=== PATIENT | male | born 1965 | race Two or more races ===

== ENCOUNTER 2025-04-13 15:07 | Inpatient (IN) | payer BC, OTHER ==
[~2025-04-13] VITALS: Ht 165.1 cm; Wt 85.3 kg
[2025-04-13 15:47] LABS: Urine Bacteria None Seen /hpf (None Seen)
[2025-04-13 16:11] LABS: Urine Blood 3+ /uL (Negative); Urine Clarity Turbid (Clear); Urine Color Light-Brown (Yellow); Urine Protein, UAD Negative (Negative); Urine Specific Gravity 1.018 (1.001-1.035); Urine Squamous Epithelial Cell None Seen /hpf (<5); Urine Urobilinogen Normal (Negative); Urine WBC 39 /HPF (0-3)
--- NOTE | 2025-04-13 16:24 | DVH ---
Exam: CT CT AB PEL WO CON-NO ORAL OR IV History: RLQ PAIN, HEMATURIA. Comparison Study: None TECHNIQUE: Multidetector CT of the abdomen was performed from lung bases to pubic symphysis. Imaging was performed without IV contrast. Axial, coronal and sagittal multiplanar reformats were obtained fr om the axial data set by the technologist. Radiation Dose Information: CT Dose: CTDI volume is 15.23 mGy. Dose-length product is 934.95 mGy*cm FINDINGS: Evaluation of solid organs is limited due to lack of intravenous contrast use. Findings: Lung Bases: No acute or significant lung base finding. Normal heart size. No pleural or pericardial effusion. Liver: The liver is normal in size. No focal lesions. Gallbladder and Biliary Tree: Possible sludge in the gallbladder Spleen: Unremarkable Pancreas: The pancreas is grossly normal in appearance. Adrenal Glands: Unremarkable Kidneys: 2 mm calculus right kidney. 6-7 mm calculus lower pole right kidney. Punctate calculus lowe r pole. Hydronephrosis right kidney .Dilatation distal right ureter. Bladder: Right ureterovesical junction. Bowel: The stomach is grossly normal in appearance. Small bowel and colon are normal in caliber and d istribution. The appendix is not visualized; however, no secondary findings of acute appendicitis id entified. Ascites: Absent Lymphadenopathy: No mesenteric, retroperitoneal or periportal lymphadenopathy. Abdominal Wall and Mesentery: Unremarkable. Vasculature: The visualized abdominal aorta is normal in size and caliber. Evaluation of abdominal a nd pelvic vessels is limited due to lack of intravenous contrast. Pelvic Organs: Unremarkable Musculoskeletal: No aggressive focal bony lesions, acute fractures or dislocation. Soft tissues: Unremarkable IMPRESSION: 1. Hydronephrosis right kidney. 3 intrarenal calculi on the right with a 5-6 mm calculus in the right ureterovesical junction and dilatation of the right ureter throughout. 2. No findings of bowel obstruction 3. No cholelithiasis Radiation optimization: All CT scans at this facility use at least one of these dose optimization ayesha hniques: automated exposure control mA and/or kV adjustment per patient size (includes targeted exam s where dose is matched to clinical indication) or iterative reconstruction.
[2025-04-13 16:29] LABS: Basophils # (auto) 0 10 ^3/uL (0-0.2); Basophils % (auto) 0.3 % (0.0-2.0); Eosinophils # (auto) 0.1 10 ^3/uL (0-0.8); Eosinophils % (auto) 0.8 % (0.0-7.0); Hematocrit 48.6 % (41.0-53.0); Hemoglobin 16.7 g/dL (13.5-17.5); Lymphocytes # (auto) 2.7 10 ^3/uL (0.4-5.4); Lymphocytes % (auto) 32.2 % (10.0-50.0); Mean Corpuscular Hemoglobin 31.2 pg (28.0-32.0); Mean Corpuscular Hgb Conc. 34.3 g/dL (32.0-36.0); Mean Corpuscular Volume 90.9 fL (80.0-100.0); Monocytes # (auto) 0.8 10 ^3/uL (0-1.3); Neutrophils # (auto) 4.9 10 ^3/uL (1.6-8.6); Neutrophils % (auto) 57.7 % (37.0-80.0); Nucleated Red Blood Cells % 0.1 %; Platelet Count (auto) 212 10^3/uL (140-450); Red Blood Cells 5.35 10^6/uL (4.5-5.90); Red Cell Distribution Width 14.5 % (11.8-14.3); White Blood Cell 8.5 10^3/uL (4.4-10.8)
[2025-04-13 16:36] LABS: Alanine Aminotransferase 35 U/L (7-40); Albumin 4.6 g/dL (3.2-4.8); Alkaline Phosphatase 64 U/L (46-116); Anion Gap 9 (5-15); Aspartate Aminotransferase 24 U/L (13-40); BUN/Creatinine Ratio 16.5 (10.0-20.0); Blood Urea Nitrogen 21 mg/dL (9-23); Calcium 9.9 mg/dL (8.7-10.4); Carbon Dioxide 30 mmol/L (20-31); Chloride 105 mmol/L (98-107); Glucose 104 mg/dL (74-106); Potassium 4.1 mmol/L (3.5-5.1); Sodium 144 mmol/L (136-145); Total Protein 7.2 g/dL (5.7-8.2)
[2025-04-13 16:37] LABS: Bilirubin, Total 0.5 mg/dL (0.2-1.0)
[2025-04-13 17:00] VITALS: PULSE 61; RESP 17; O2SAT 98
[2025-04-13 17:10] LABS: Lipase 42 U/L (12-53)
[2025-04-13] MEDS: SODIUM CHLORIDE 0.9% 1,000 ML IV ONE (17:12)
[2025-04-13] MEDS: fentaNYL CITRATE 100 MCG/2 ML VL IV ONE (17:12)
--- NOTE | 2025-04-13 17:13 | ED.PDOC ---
General HPI Comments 60 y M who presents to the ED for chief complaint of hematuria - pt states he noticed blood in his urine since earlier this AM - pt states his urine was dark red in color - pt has associated RLQ abdominal pain radiating to the R testes - pt rates his pain 4/10, with no associated exacerbating or relieving factors - pt otherwise denies any other symptoms Past Medical history: denies Past Surgical history: L wrist Medications: denies Allergies: iodine Social History: denies ETOH, denies tobacco use, denies drug use HPI: Poor Historian. REVIEW OF SYSTEMS: CONSTITUTIONAL: Denies acute: fever, diaphoresis, chills, HEAD: Denies acute: headache, photophobia Eyes: Denies acute: Double vision, vision loss, eye pain, eye discharge. EARS: Denies acute: tinnitus, hearing loss, ear discharge, ear pain, THROAT: Denies acute: sore throat, swelling, difficulty swallowing , pain with swallowing, change in voice. NECK: Denies acute: neck pain, neck swelling, stiff neck. HEART: Denies acute : chest pain, palpitations, LUNGS: Denies acute: SOB, wheezing, cough, hemoptysis ABDOMEN: Denies acute: Nausea, Vomiting, diarrhea, melena , hematemesis, hematochezia SKIN: Denies acute: rash, redness, lesions, itchiness. EXTREMITIES: Denies acute: calf pain, numbness, tingling, weakness, denies pain in extremity. Denies acute: Low back pain. Neuro: Denies acute: focal neurological deficit, motor or sensory focal neurological deficit, tremors, seizure like activity, confusion, dizziness, change in mental status, loss of bowel or bladder function, cauda equina like symptoms. : Denies acute: dysuria, flank pain, increase in urinary frequency. PSYCH: Denies acute: hallucination, suicidal ideation, homicidal ideation. PHYSICAL EXAM: General: ---[id number]-----acute distress, awake and alert. Head: normocephalic, atraumatic. Neck: supple, trachea is midline, no swelling. Throat: Normal phonation. Eyes:, no erythema, no purulent discharge, no proptosis, no icterus. Heart: regular rate, regular rhythm, no significant murmur appreciated. Lungs: no apparent respiratory distress, Able to speak in full sentences. No wheezing, no rhonchi, no crackles. No stridors Clear to auscultation bilaterally. Abdomen: Right-sided tender to palpation, non distended, soft, no guarding, no rebound, + bowel sounds. Neuro: Awake, Alert, oriented to name, self, situation, follows commands GCS=15. Speech is normal. Skin: no petechia, no purpura, no cyanosis, non-pale, not jaundice. Lower extremities: --no - Pitting edema no deformity, no focal swelling, no calf TTP. Makes eye contact. moves all four extremities. Face: no apparent facial droop. No CVA tenderness to percussion bilaterally. Ambulating in the ED independently. ED COURSE: Chief Complaint: Urinary Time Seen by MD: 17:12 Primary Care Provider: UNKNOWN Reviewed notes: Medications, Allergies Allergies: Coded Allergies: Iodine (Verified Allergy, Unknown, 04/13/25) Home Meds No Active Prescriptions or Reported Meds Information Source: Patient Mode of Arrival: Ambulatory Was a procedure done? Was a procedure done?: No Differential Diagnosis Kidney stone (Female): N/A Kidney stone (Male): Other (Flank Pain;DDX include Nephrolethiasis, obstructive uropathy, kidney cancer, renal infarct, intraabdominal neoplasm, lower lobe pneumonia, retroperitoneal hemorrhage, pancreatitis, aneurysm, dissection, musculoskeletal, rib contusion/trauma, hematoma, PYLONEPHRITIS, muscle strain, spinal disease. ) Penile/Scrotal: Other (DDX include but not limited to diverticulitis, colitis, gastroenteritis, acute abdomen, SBO, enteritis, constipation, volvulus, appendicitis, Gallbladder disease, choledocolithiasis, ascending cholangitis, pancreatitis, intraAbdominal mass/neoplasm, hepatitis, UTI, pylonephritis, kidney stone, aneurysm, dissection, Inflammatory bowel disease, gastroparesis, ischemic bowel.) Urinary Problem (Male): Bladder Outlet, Bladder Obstruction, Epididymitis, Prostatitis, Plelonephritis, Post op Complications, Renal Failure, Urethritis, Urinary Retention, Urolithiasis, UTI X-Ray, Labs, Meds, VS Vital Signs Date Time Temp Pulse Resp B/P (MAP) Pulse Ox O2 Delivery O2 Flow Rate FiO2 04/13/25 17:12 154/87 04/13/25 17:02 98.1 61 17 154/87 (109) 98 98.1 04/13/25 17:00 61 17 98 Room Air* 0 21 04/13/25 16:52 69 18 98 Room Air 04/13/25 16:52 99 18 149/89 (109) 64 04/13/25 15:30 98.0 73 20 147/97 (114) 95 98.0 Lab Test 04/13/25 16:00 04/13/25 15:30 Range/Units White Blood Count 8.5 4.4-10.8 10^3/uL Red Blood Count 5.35 4.5-5.90 10^6/uL Hemoglobin 16.7 13.5-17.5 g/dL Hematocrit 48.6 41.0-53.0 % Mean Corpuscular Volume 90.9 80.0-100.0 fL Mean Corpuscular Hemoglobin 31.2 28.0-32.0 pg Mean Corpuscular Hemoglobin Concent 34.3 32.0-36.0 g/dL Red Cell Distribution Width 14.5 H 11.8-14.3 % Platelet Count 212 140-450 10^3/uL Mean Platelet Volume 7.6 6.9-10.8 fL Neutrophils (%) (Auto) 57.7 37.0-80.0 % Lymphocytes (%) (Auto) 32.2 10.0-50.0 % Monocytes (%) (Auto) 9.0 0.0-12.0 % Eosinophils (%) (Auto) 0.8 0.0-7.0 % Basophils (%) (Auto) 0.3 0.0-2.0 % Neutrophils # (Auto) 4.9 1.6-8.6 10 ^3/uL Lymphocytes # (Auto) 2.7 0.4-5.4 10 ^3/uL Monocytes # (Auto) 0.8 0-1.3 10 ^3/uL Eosinophils # (Auto) 0.1 0-0.8 10 ^3/uL Basophils # (Auto) 0 0-0.2 10 ^3/uL Nucleated Red Blood Cells 0.1 % Sodium Level 144 136-145 mmol/L Potassium Level 4.1 3.5-5.1 mmol/L Chloride Level 105 98-107 mmol/L Carbon Dioxide Level 30 20-31 mmol/L Anion Gap 9 5-15 Blood Urea Nitrogen 21 9-23 mg/dL Creatinine 1.27 0.700-1.30 mg/dL Glomerular Filtration Rate Calc 65 >90 mL/min BUN/Creatinine Ratio 16.5 10.0-20.0 Serum Glucose 104 74-106 mg/dL Lactic Acid Level 1.4 0.4-2.0 mmol/L Calcium Level 9.9 8.7-10.4 mg/dL Total Bilirubin 0.5 0.2-1.0 mg/dL Aspartate Amino Transferase (AST) 24 13-40 U/L Alanine Aminotransferase (ALT) 35 7-40 U/L Alkaline Phosphatase 64 46-116 U/L Troponin I High Sensitivity < 3 L </=54 ng/L Total Protein 7.2 5.7-8.2 g/dL Albumin 4.6 3.2-4.8 g/dL Lipase 42 12-53 U/L Urine Color Light-brown Yellow Urine Clarity Turbid H Clear Urine pH 6.0 5.0-9.0 Urine Specific [place] 1.018 1.001-1.035 Urine Protein Negative Negative Urine Ketones Negative Negative Urine Blood 3+ H Negative /uL Urine Nitrite Negative Negative Urine Bilirubin Negative Negative Urine Urobilinogen Normal Negative mg/dL Urine Leukocyte Esterase Negative Negative /uL Urine RBC 2617 0 - 3 /hpf Urine Microscopic WBC 39 H 0-3 /HPF Urine Squamous Epithelial Cells None seen <5 /hpf Urine Bacteria None seen None Seen /hpf Urine Glucose Normal Normal mg/dL [place] [id number] Ph: [phone] DIAGNOSTIC IMAGING Diagnostic Imaging Report : [id number] Signed PATIENT: PAULINO BRITT ACCT: [id number] UNIT: [id number] : 1965 LOC: ER ROOM / BED: / AGE / SEX: 60 / M ADM STATUS: REG ER SERVICE [id number] ORDERING PHYSICIAN: CYNDIE NEAL DO PROCEDURE(s): ABPL - CT AB PEL WO CON-NO ORAL OR IV REASON: RLQ PAIN, HEMATURIA. ORDER NUMBER(s): [id number], ACCESSION NUMBER(s): [id number] Exam: CT CT AB PEL WO CON-NO ORAL OR IV History: RLQ PAIN, HEMATURIA. Comparison Study: None TECHNIQUE: Multidetector CT of the abdomen was performed from lung bases to pub ic symphysis. Imaging was performed without IV contrast. Axial, coronal and sagittal multiplanar reformats were obtained from the axial data set by the technologist. Radiation Dose Information: CT Dose: CTDI volume is 15.23 mGy. Dose-length product is 934.95 mGy*cm FINDINGS: Evaluation of solid organs is limited due to lack of intravenous contrast use. Findings: Lung Bases: No acute or significant lung base finding. Normal heart size. No pleural or pericardial effusion. Liver: The liver is normal in size. No focal lesions. Gallbladder and Biliary Tree: Possible sludge in the gallbladder Spleen: Unremarkable Pancreas: The pancreas is grossly normal in appearance. Adrenal Glands: Unremarkable Kidneys: 2 mm calculus right kidney. 6-7 mm calculus lower pole right kidney. Punctate calculus lower pole. Hydronephrosis right kidney .Dilatation distal right ureter. Bladder: Right ureterovesical junction. Bowel: The stomach is grossly normal in appearance. Small bowel and colon are normal in caliber and distribution. The appendix is not visualized; however, no secondary findings of acute appendicitis identified. Ascites: Absent Lymphadenopathy: No mesenteric, retroperitoneal or periportal lymphadenopathy. Abdominal Wall and Mesentery: Unremarkable. Vasculature: The visualized abdominal aorta is normal in size and caliber. Evaluation of abdominal and pelvic vessels is limited due to lack of intravenous contrast. Pelvic Organs: Unremarkable Musculoskeletal: No aggressive focal bony lesions, acute fractures or dislocation. Soft tissues: Unremarkable IMPRESSION: 1. Hydronephrosis right kidney. 3 intrarenal calculi on the right with a 5-6 mm calculus in the right ureterovesical junction and dilatation of the right ureter throughout. 2. No findings of bowel obstruction 3. No cholelithiasis Radiation optimization: All CT scans at this facility use at least one of these dose optimization techniques: automated exposure control mA and/or kV adjustment per patient size (includes targeted exams where dose is matched to clinical indication) or iterative reconstruction. ATED BY: JACK RUELAS Jr., DO DICTATED DATE/TIME: 04/13/25 1621 SIGNED BY: JACK RUELAS Jr., DO SIGNED DATE/TIME: 04/13/25 1621 CC: Time of 1ST Reevaluation: 00:00 Reevaluation 1ST: N/A Patient Education/Counseling: Diagnosis, Treatment Family Education/Counseling: No Family Present Comments Patient presented with the above HPI.--abdominal/flank pain/hematuria---workup was initiated. patient was found with the above mentioned diagnosis. the following medications were ordered: please refer to order lists of meds and tests obtained by myself Dr. Neal. Patient ED course and VS have been stabilized. Patient has been reassessed in the ED and remained in a stable condition. Pertinent incidental findings were discussed with the patient and/or family. Patient/family voices understanding and is agreeable with plan. Patient has been observed in the ED adequate length of time to insure improvement/stability. Escalation of care considered: Consideration of escalation to observation or admission Patient was admitted to the hospital for further evaluation and treatment of his presentation. All the reports of any imaging studies that were ordered by myself were reviewed by myself. Departure 1 Departure Time of Disposition: 17:25 Impression: Primary Impression: Hydronephrosis with renal and ureteral calculus obstruction Additional Impression: Hematuria Disposition: ADMITTED INPATIENT Admit to: Tele Condition: Guarded e-Prescriptions No Active Prescriptions or Reported Meds Discharged With: Self Critical Care Note Critical Care Time?: No I personally scribed for CYNDIE NEAL DO ([email or web address]) on 04/13/25 at 17:13. Electronically submitted by Beto MOORE). CYNDIE NEAL DO Apr 13, 2025 17:13
[2025-04-13] MEDS: cefTRIAXone 1GM/50ML D5W 50 ML IV ONE (17:30)
[2025-04-13] MEDS: TAMSULOSIN HYDROCHLORIDE 0.4 MG CAP PO ONE (17:36)
[2025-04-13] MEDS ORDERED: ACETAMINOPHEN 325 MG TAB PO PRN (19:30)
[2025-04-13] MEDS ORDERED: ONDANSETRON HCL 4 MG/2 ML VIAL IV PRN (19:30)
--- NOTE | 2025-04-13 21:25 | DVHHP2 ---
History of Present Illness Reason for Visit: Right flank pain History of Present Illness 60-year-old male presents for evaluation of right flank pain. Patient reports a one day history of right-sided flank pain with associated bloody urine. Denies fever or chills. No nausea or vomiting. No other acute complaints. Past Medical History Denies Past Surgical History Denies Family History Noncontributory Smoke: No ALCOHOL: none Drugs: None Lives: with Family Review of Systems Review of Systems Review of systems are currently negative otherwise addressed in HPI. Allergies: Coded Allergies: Iodine (Verified Allergy, Unknown, 04/13/25) Medications Current Medications Medications Dose Ordered Sig/Ammy Route Start Time Stop Time Status Last Admin Dose Admin Ceftriaxone Sodium 50 ml @ 100 mls/hr DAILY@09 IV 04/14/25 09:00 Acetaminophen/ Hydrocodone Bitart 1 tab Q4HP PRN PO 04/13/25 19:30 Ondansetron HCl 4 mg Q4HP PRN IV 04/13/25 19:30 Acetaminophen 650 mg Q6HP PRN PO 04/13/25 19:30 Exam Vital Signs Vital Signs Date Time Temp Pulse Resp B/P (MAP) Pulse Ox O2 Delivery O2 Flow Rate FiO2 04/13/25 19:28 98.3 72 18 169/97 (121) 94 98.3 04/13/25 17:00 Room Air* 0 21 Exam Gen: 60-year-old male in mild distress Skin: Warm, dry, normal color and texture, no rash. HEENT: Normocephalic atraumatic, mucous membranes moist and pink. Neck: Cervical and supraclavicular nodes normal without enlargement, trachea is midline, thyroid gland is normal without masses. Pulmonary: Clear to auscultation and percussion bilaterally. Cardiac: Regular rate and rhythm. No murmur Abdomen: Soft, right CVA tenderness, nondistended, bowel sounds present all 4 quadrants, no guarding, no rigidity, no organomegaly. Extremities: No cyanosis, clubbing, no edema Neuro: Cranial nerves II through XII grossly intact, normal affect and speech, no focal motor deficits. Labs/Xrays ORDERING PHYSICIAN: CYNDIE NEAL DO PROCEDURE(s): ABPL - CT AB PEL WO CON-NO ORAL OR IV REASON: RLQ PAIN, HEMATURIA. ORDER NUMBER(s): [id number], ACCESSION NUMBER(s): [id number] Exam: CT CT AB PEL WO CON-NO ORAL OR IV History: RLQ PAIN, HEMATURIA. Comparison Study: None TECHNIQUE: Multidetector CT of the abdomen was performed from lung bases to pubic symphysis. Imaging was performed without IV contrast. Axial, coronal and sagittal multiplanar reformats were obtained from the axial data set by the technologist. Radiation Dose Information: CT Dose: CTDI volume is 15.23 mGy. Dose-length product is 934.95 mGy*cm FINDINGS: Evaluation of solid organs is limited due to lack of intravenous contrast use. Findings: Lung Bases: No acute or significant lung base finding. Normal heart size. No pleural or pericardial effusion. Liver: The liver is normal in size. No focal lesions. Gallbladder and Biliary Tree: Possible sludge in the gallbladder Spleen: Unremarkable Pancreas: The pancreas is grossly normal in appearance. Adrenal Glands: Unremarkable Kidneys: 2 mm calculus right kidney. 6-7 mm calculus lower pole right kidney. Punctate calculus lower pole. Hydronephrosis right kidney .Dilatation distal right ureter. Bladder: Right ureterovesical junction. Bowel: The stomach is grossly normal in appearance. Small bowel and colon are normal in caliber and distribution. The appendix is not visualized; however, no secondary findings of acute appendicitis identified. Ascites: Absent Lymphadenopathy: No mesenteric, retroperitoneal or periportal lymphadenopathy. Abdominal Wall and Mesentery: Unremarkable. Vasculature: The visualized abdominal aorta is normal in size and caliber. Evaluation of abdominal and pelvic vessels is limited due to lack of intravenous contrast. Pelvic Organs: Unremarkable Musculoskeletal: No aggressive focal bony lesions, acute fractures or dislocation. Soft tissues: Unremarkable IMPRESSION: 1. Hydronephrosis right kidney. 3 intrarenal calculi on the right with a 5-6 mm calculus in the right ureterovesical junction and dilatation of the right ureter throughout. 2. No findings of bowel obstruction 3. No cholelithiasis Radiation optimization: All CT scans at this facility use at least one of these dose optimization techniques: automated exposure control mA and/or kV adjustment per patient size (includes targeted exams where dose is matched to clinical indication) or iterative reconstruction. Labs Test 04/13/25 16:00 04/13/25 15:30 Range/Units White Blood Count 8.5 4.4-10.8 10^3/uL Red Blood Count 5.35 4.5-5.90 10^6/uL Hemoglobin 16.7 13.5-17.5 g/dL Hematocrit 48.6 41.0-53.0 % Mean Corpuscular Volume 90.9 80.0-100.0 fL Mean Corpuscular Hemoglobin 31.2 28.0-32.0 pg Mean Corpuscular Hemoglobin Concent 34.3 32.0-36.0 g/dL Red Cell Distribution Width 14.5 H 11.8-14.3 % Platelet Count 212 140-450 10^3/uL Mean Platelet Volume 7.6 6.9-10.8 fL Neutrophils (%) (Auto) 57.7 37.0-80.0 % Lymphocytes (%) (Auto) 32.2 10.0-50.0 % Monocytes (%) (Auto) 9.0 0.0-12.0 % Eosinophils (%) (Auto) 0.8 0.0-7.0 % Basophils (%) (Auto) 0.3 0.0-2.0 % Neutrophils # (Auto) 4.9 1.6-8.6 10 ^3/uL Lymphocytes # (Auto) 2.7 0.4-5.4 10 ^3/uL Monocytes # (Auto) 0.8 0-1.3 10 ^3/uL Eosinophils # (Auto) 0.1 0-0.8 10 ^3/uL Basophils # (Auto) 0 0-0.2 10 ^3/uL Nucleated Red Blood Cells 0.1 % Sodium Level 144 136-145 mmol/L Potassium Level 4.1 3.5-5.1 mmol/L Chloride Level 105 98-107 mmol/L Carbon Dioxide Level 30 20-31 mmol/L Anion Gap 9 5-15 Blood Urea Nitrogen 21 9-23 mg/dL Creatinine 1.27 0.700-1.30 mg/dL Glomerular Filtration Rate Calc 65 >90 mL/min BUN/Creatinine Ratio 16.5 10.0-20.0 Serum Glucose 104 74-106 mg/dL Lactic Acid Level 1.4 0.4-2.0 mmol/L Calcium Level 9.9 8.7-10.4 mg/dL Total Bilirubin 0.5 0.2-1.0 mg/dL Aspartate Amino Transferase (AST) 24 13-40 U/L Alanine Aminotransferase (ALT) 35 7-40 U/L Alkaline Phosphatase 64 46-116 U/L Troponin I High Sensitivity < 3 L </=54 ng/L Total Protein 7.2 5.7-8.2 g/dL Albumin 4.6 3.2-4.8 g/dL Lipase 42 12-53 U/L Urine Color Light-brown Yellow Urine Clarity Turbid H Clear Urine pH 6.0 5.0-9.0 Urine Specific [place] 1.018 1.001-1.035 Urine Protein Negative Negative Urine Ketones Negative Negative Urine Blood 3+ H Negative /uL Urine Nitrite Negative Negative Urine Bilirubin Negative Negative Urine Urobilinogen Normal Negative mg/dL Urine Leukocyte Esterase Negative Negative /uL Urine RBC 2617 0 - 3 /hpf Urine Microscopic WBC 39 H 0-3 /HPF Urine Squamous Epithelial Cells None seen <5 /hpf Urine Bacteria None seen None Seen /hpf Urine Glucose Normal Normal mg/dL Assessment/Plan Assessment/Plan Assessment Renal calculus Right hydronephrosis Renal colic Hematuria Plan Admit the patient to [facility] to the hospitalist Urology consultation Pain management Rocephin Continue treatment per orders. Plan discussed with: Patient My Orders Orders - ROJAS CHILDRESS Procedure Category Date Status Time Ceftriaxone 1gm/50ml PHA 04/14/25 In Process D5w (Rocephin) 09:00 * Urology Consult CONS 04/13/25 Transmitted 19:26 Admit ADMIT 04/13/25 Transmitted 19:26 Hydrocodone-Acet PHA 04/13/25 In Process 5/325mg Tab ([place] 19:30 Ondansetron Hcl PHA 04/13/25 In Process (Zofran) 19:30 Complete Blood Count LAB 04/14/25 Verified 04:00 Condition: Stable JONG 04/13/25 In Process 19:26 Acetaminophen Tablet PHA 04/13/25 In Process (Tylenol Tablet) 19:30 Bedrest With Bathroom JONG 04/13/25 In Process Privileg 19:26 Date of Service: Apr 13, 2025 Billing Provider: ROJAS CHILDRESS Common Visit Codes: [id number] INP/OBS CARE (HIGH) ROJAS CHILDRESS Apr 13, 2025 21:25
[2025-04-13 22:40] VITALS: BP 126/80; PULSE 76; RESP 20; TEMP 97.9; O2SAT 96
[2025-04-13 22:47] VITALS: BP 124/79; PULSE 78; RESP 16; TEMP 98.4; O2SAT 93
[2025-04-14] VITALS (7 sets, daily range): BP systolic 84–149; BP diastolic 79–90; PULSE 70–78; RESP 16–20; TEMP 97.9–98.5; O2SAT 93–98
[2025-04-14 07:33] LABS: Basophils # (auto) 0 10 ^3/uL (0-0.2); Basophils % (auto) 0.3 % (0.0-2.0); Eosinophils # (auto) 0 10 ^3/uL (0-0.8); Eosinophils % (auto) 0.2 % (0.0-7.0); Hematocrit 46.1 % (41.0-53.0); Hemoglobin 15.7 g/dL (13.5-17.5); Lymphocytes # (auto) 2.2 10 ^3/uL (0.4-5.4); Lymphocytes % (auto) 23.6 % (10.0-50.0); Mean Corpuscular Hemoglobin 30.9 pg (28.0-32.0); Mean Corpuscular Hgb Conc. 34.1 g/dL (32.0-36.0); Mean Corpuscular Volume 90.6 fL (80.0-100.0); Monocytes # (auto) 0.9 10 ^3/uL (0-1.3); Monocytes % (auto) 9.7 % (0.0-12.0); Neutrophils # (auto) 6.3 10 ^3/uL (1.6-8.6); Neutrophils % (auto) 66.2 % (37.0-80.0); Platelet Count (auto) 202 10^3/uL (140-450); Red Blood Cells 5.09 10^6/uL (4.5-5.90); Red Cell Distribution Width 14.1 % (11.8-14.3); White Blood Cell 9.5 10^3/uL (4.4-10.8)
[2025-04-14] MEDS: cefTRIAXone 1GM/50ML D5W 50 ML IV SCH (09:07)
--- NOTE | 2025-04-14 16:32 | DVHPN2 ---
Subjective In bed with minimal pain Reviewed: H&P, Labs Changes from previous H/P or p: No Changes Objective Vitals Vital Signs Date Time Temp Pulse Resp B/P (MAP) Pulse Ox O2 Delivery O2 Flow Rate FiO2 04/14/25 13:00 97.9 78 16 149/88 (108) 98 97.9 04/14/25 08:00 Room Air* 0 21 Intake/Output Intake and Output 04/14/25 07:00 Intake Total 0 ml Balance 0 ml Intake Oral 0 ml # Voids 2 General Appearance: Alert, Oriented X3 HEENT: Atraumatic Cardiovascular: Regular rate, Normal S2 Medications Current Medications Medications Dose Ordered Sig/Ammy Route Start Time Stop Time Status Last Admin Dose Admin Ceftriaxone Sodium 50 ml @ 100 mls/hr DAILY@09 IV 04/14/25 09:00 04/14/25 09:07 100 MLS/HR Acetaminophen/ Hydrocodone Bitart 1 tab Q4HP PRN PO 04/13/25 19:30 Ondansetron HCl 4 mg Q4HP PRN IV 04/13/25 19:30 Acetaminophen 650 mg Q6HP PRN PO 04/13/25 19:30 Laboratory Results Laboratory Tests 04/13/25 16:00 04/14/25 07:06 Urinalysis Test 04/13/25 15:30 Urine Color Light-brown (Yellow) Urine Clarity Turbid (Clear) H Urine pH 6.0 (5.0-9.0) Urine Specific [place] 1.018 (1.001-1.035) Urine Protein Negative (Negative) Urine Ketones Negative (Negative) Urine Blood 3+ /uL (Negative) H Urine Nitrite Negative (Negative) Urine Bilirubin Negative (Negative) Urine Urobilinogen Normal mg/dL (Negative) Urine Leukocyte Esterase Negative /uL (Negative) Urine RBC 2617 /hpf (0 - 3) Urine Microscopic WBC 39 /HPF (0-3) H Urine Squamous Epithelial Cells None seen /hpf (<5) Urine Bacteria None seen /hpf (None Seen) Urine Glucose Normal mg/dL (Normal) Assessment/Plan Assessment/Plan Renal calculus Right hydronephrosis Renal colic Hematuria Urology consult IV abx Plan discussed with: Patient Date of Service: Apr 14, 2025 Billing Provider: PATTY ROWELL MD Common Visit Codes: [id number] INP/OBS CARE(HIGH) PATTY ROWELL MD Apr 14, 2025 16:32
[2025-04-15] VITALS (8 sets, daily range): BP systolic 134–195; BP diastolic 78–115; PULSE 62–74; RESP 16–20; TEMP 97.6–98.2; O2SAT 95–99
[2025-04-15] MEDS ORDERED: CIPR500T4 PO (13:50)
[2025-04-15] MEDS ORDERED: TAMS0.4C39 PO (13:50)
--- NOTE | 2025-04-15 16:04 | DVH ---
INDICATION: hydronephrosis TECHNIQUE: Multiple real-time sonographic images of the kidneys and bladder were obtained. COMPARISON: CT abdomen and pelvis done 04/13/2025 FINDINGS: The right kidney measures 12.6 cm in length, which is normal in size. There is normal echog enicity of the right kidney. Right-sided hydronephrosis The left kidney measures 11.5 cm in length, which is normal in size. There is normal echogenicity of the left kidney. No hydronephrosis. No large intraluminal masses are seen in the bladder. Prior to voiding the bladder volume measures vo lume 88 mL cc. 5 mm calculus at the right UVJ. Distal right ureter dilated 2-1/2 cm. IMPRESSION: 1. Right kidney measures 12.6 cm. Left kidney measures 11.5 cm. 2. Right-sided hydronephrosis 3. 5 mm calculus at the right ureterovesical junction with dilated distal right ureter.
[2025-04-15] MEDS: MANNITOL FTV 25% 12.5 GM/50 ML 50 ML IV ONE (16:37)
[2025-04-15] MEDS: SODIUM CHLORIDE 0.9% 1,000 ML IV ONE (16:37)
--- NOTE | 2025-04-15 16:44 | DVHINCON2 ---
Date of service: Apr 15, 2025 Referring Physician hospitalist Reason for Consultation hydronephrosis History of Present Illness History Source: Patient, RN Notes, MD Notes Exam Limitations: No limitations HPI 60 yo male c/o RLQ pain. CT showed renal stones that are non obstructing up to 5 mm and right distal stone 6-7 mm causing mild to moderate hydroureteronephrosis. He was pain free yesterday but reports being sore today in the RLQ. Us did not visualized any right sided jet. There is persistent hydro. renal function is preserved. Home Meds Active Scripts Ciprofloxacin Hcl (Ciprofloxacin Hcl) 500 Mg Tab, 1 TAB PO BID for 5 Days, #10 TAB Prov:PATTY ROWELL MD 04/15/25 Tamsulosin Hcl (Tamsulosin Hcl) 0.4 Mg Cap, 1 CAP PO DAILY for 7 Days, #30 CAP 5 Refills Prov:PATTY ROWELL MD 04/15/25 Past Medical History Patient Family History: Patient reports no known family medical history. H&P Exam Vital Signs Vital Signs Date Time Temp Pulse Resp B/P (MAP) Pulse Ox O2 Delivery O2 Flow Rate FiO2 04/15/25 13:14 98.1 74 16 154/95 (114) 96 98.1 04/15/25 07:30 Room Air* 0 21 Labs/Xrays [place] [address] Ph: [phone] DIAGNOSTIC IMAGING Diagnostic Imaging Report : [id number] Signed PATIENT: PAULINO BRITT ACCT: [id number] UNIT: [id number] : 1965 LOC: ER ROOM / BED: / AGE / SEX: 60 / M ADM STATUS: REG ER SERVICE 1533 ORDERING PHYSICIAN: CYNDIE NEAL DO PROCEDURE(s): ABPL - CT AB PEL WO CON-NO ORAL OR IV REASON: RLQ PAIN, HEMATURIA. ORDER NUMBER(s): [id number], ACCESSION NUMBER(s): [id number] Exam: CT CT AB PEL WO CON-NO ORAL OR IV History: RLQ PAIN, HEMATURIA. Comparison Study: None TECHNIQUE: Multidetector CT of the abdomen was performed from lung bases to pubic symphysis. Imaging was performed without IV contrast. Axial, coronal and sagittal multiplanar reformats were obtained from the axial data set by the technologist. Radiation Dose Information: CT Dose: CTDI volume is 15.23 mGy. Dose-length product is 934.95 mGy*cm FINDINGS: Evaluation of solid organs is limited due to lack of intravenous contrast use. Findings: Lung Bases: No acute or significant lung base finding. Normal heart size. No pleural or pericardial effusion. Liver: The liver is normal in size. No focal lesions. Gallbladder and Biliary Tree: Possible sludge in the gallbladder Spleen: Unremarkable Pancreas: The pancreas is grossly normal in appearance. Adrenal Glands: Unremarkable Kidneys: 2 mm calculus right kidney. 6-7 mm calculus lower pole right kidney. Punctate calculus lower pole. Hydronephrosis right kidney .Dilatation distal right ureter. Bladder: Right ureterovesical junction. Bowel: The stomach is grossly normal in appearance. Small bowel and colon are normal in caliber and distribution. The appendix is not visualized; however, no secondary findings of acute appendicitis identified. Ascites: Absent Lymphadenopathy: No mesenteric, retroperitoneal or periportal lymphadenopathy. Abdominal Wall and Mesentery: Unremarkable. Vasculature: The visualized abdominal aorta is normal in size and caliber. Evaluation of abdominal and pelvic vessels is limited due to lack of intravenous contrast. Pelvic Organs: Unremarkable Musculoskeletal: No aggressive focal bony lesions, acute fractures or dislocation. Soft tissues: Unremarkable IMPRESSION: 1. Hydronephrosis right kidney. 3 intrarenal calculi on the right with a 5-6 mm calculus in the right ureterovesical junction and dilatation of the right ureter throughout. 2. No findings of bowel obstruction 3. No cholelithiasis Radiation optimization: All CT scans at this facility use at least one of these dose optimization techniques: automated exposure control mA and/or kV adjustment per patient size (includes targeted exams where dose is matched to c linical indication) or iterative reconstruction. ATED BY: JACK RUELAS Jr., DO DICTATED DATE/TIME: 04/13/251620 SIGNED BY: JACK RUELAS Jr., DO SIGNED DATE/TIME: 04/13/251620 CC: [place] [address] Ph: [phone] DIAGNOSTIC IMAGING Diagnostic Imaging Report : [id number] Signed PATIENT: PAULINO BRITT ACCT: [id number] UNIT: [id number] : 1965 LOC: [facility] ROOM / BED: [facility] / B AGE / SEX: 60 / M ADM STATUS: ADM IN SERVICE 1503 ORDERING PHYSICIAN: CHRISTIANNE WILCOX NP PROCEDURE(s): KIDUS - KIDNEY REASON: hydronephrosis ORDER NUMBER(s): [id number], ACCESSION NUMBER(s): [id number] INDICATION: hydronephrosis TECHNIQUE: Multiple real-time sonographic images of the kidneys and bladder were obtained. COMPARISON: CT abdomen and pelvis done 04/13/2025 FINDINGS: The right kidney measures 12.6 cm in length, which is normal in size. There is normal echogenicity of the right kidney. Right-sided hydronephrosis The left kidney measures 11.5 cm in length, which is normal in size. There is normal echogenicity of the left kidney. No hydronephrosis. No large intraluminal masses are seen in the bladder. Prior to voiding the bladder volume measures volume 88 mL cc. 5 mm calculus at the right UVJ. Distal right ureter dilated 2-1/2 cm. IMPRESSION: 1. Right kidney measures 12.6 cm. Left kidney measures 11.5 cm. 2. Right-sided hydronephrosis 3. 5 mm calculus at the right ureterovesical junction with dilated distal right ureter. ATED BY: JACK RUELAS Jr., DO DICTATED DATE/TIME: 04/15/25 1601 SIGNED BY: JACK RUELAS Jr., SIGNED DATE/TIME: 04/15/25 1601 CC: Labs Test 04/14/25 07:06 04/13/25 16:00 04/13/25 15:30 Range/Units White Blood Count 9.5 4.4-10.8 10^3/uL Red Blood Count 5.09 4.5-5.90 10^6/uL Hemoglobin 15.7 13.5-17.5 g/dL Hematocrit 46.1 41.0-53.0 % Mean Corpuscular Volume 90.6 80.0-100.0 fL Mean Corpuscular Hemoglobin 30.9 28.0-32.0 pg Mean Corpuscular Hemoglobin Concent 34.1 32.0-36.0 g/dL Red Cell Distribution Width 14.1 11.8-14.3 % Platelet Count 202 140-450 10^3/uL Mean Platelet Volume 7.7 6.9-10.8 fL Neutrophils (%) (Auto) 66.2 37.0-80.0 % Lymphocytes (%) (Auto) 23.6 10.0-50.0 % Monocytes (%) (Auto) 9.7 0.0-12.0 % Eosinophils (%) (Auto) 0.2 0.0-7.0 % Basophils (%) (Auto) 0.3 0.0-2.0 % Neutrophils # (Auto) 6.3 1.6-8.6 10 ^3/uL Lymphocytes # (Auto) 2.2 0.4-5.4 10 ^3/uL Monocytes # (Auto) 0.9 0-1.3 10 ^3/uL Eosinophils # (Auto) 0 0-0.8 10 ^3/uL Basophils # (Auto) 0 0-0.2 10 ^3/uL Nucleated Red Blood Cells 0.0 % Sodium Level 144 136-145 mmol/L Potassium Level 4.1 3.5-5.1 mmol/L Chloride Level 105 98-107 mmol/L Carbon Dioxide Level 30 20-31 mmol/L Anion Gap 9 5-15 Blood Urea Nitrogen 21 9-23 mg/dL Creatinine 1.27 0.700-1.30 mg/dL Glomerular Filtration Rate Calc 65 >90 mL/min BUN/Creatinine Ratio 16.5 10.0-20.0 Serum Glucose 104 74-106 mg/dL Lactic Acid Level 1.4 0.4-2.0 mmol/L Calcium Level 9.9 8.7-10.4 mg/dL Total Bilirubin 0.5 0.2-1.0 mg/dL Aspartate Amino Transferase (AST) 24 13-40 U/L Alanine Aminotransferase (ALT) 35 7-40 U/L Alkaline Phosphatase 64 46-116 U/L Troponin I High Sensitivity < 3 L </=54 ng/L Total Protein 7.2 5.7-8.2 g/dL Albumin 4.6 3.2-4.8 g/dL Lipase 42 12-53 U/L Urine Color Light-brown Yellow Urine Clarity Turbid H Clear Urine pH 6.0 5.0-9.0 Urine Specific [place] 1.018 1.001-1.035 Urine Protein Negative Negative Urine Ketones Negative Negative Urine Blood 3+ H Negative /uL Urine Nitrite Negative Negative Urine Bilirubin Negative Negative Urine Urobilinogen Normal Negative mg/dL Urine Leukocyte Esterase Negative Negative /uL Urine RBC 2617 0 - 3 /hpf Urine Microscopic WBC 39 H 0-3 /HPF Urine Squamous Epithelial Cells None seen <5 /hpf Urine Bacteria None seen None Seen /hpf Urine Glucose Normal Normal mg/dL Assessment/Plan Problem List: (1) Hydronephrosis with renal and ureteral calculus obstruction Plan monitor renal function pain meds prn expulsive measures encourage ambulation push fluids Plan discussed with: Patient, Other CHRISTIANNE WILCOX NP Apr 15, 2025 16:44
[2025-04-15] MEDS: HYDROcodone-ACET 5/325MG TAB PO PRN (16:46)
--- NOTE | 2025-04-15 18:10 | DVHPN2 ---
Subjective had worsening pain today Reviewed: H&P, Labs Changes from previous H/P or p: No Changes Objective Vitals Vital Signs Date Time Temp Pulse Resp B/P (MAP) Pulse Ox O2 Delivery O2 Flow Rate FiO2 04/15/25 16:51 98.0 66 17 174/95 (121) 98 98.0 04/15/25 07:30 Room Air* 0 21 Intake/Output Intake and Output 04/15/25 07:00 Intake Total 2980 ml Balance 2980 ml Intake Oral 2980 ml # Voids 6 # Bowel Movements 2 General Appearance: Alert, Oriented X3 HEENT: Atraumatic Cardiovascular: Regular rate, Normal S2 Medications Current Medications Medications Dose Ordered Sig/Ammy Route Start Time Stop Time Status Last Admin Dose Admin Ceftriaxone Sodium 50 ml @ 100 mls/hr DAILY@09 IV 04/14/25 09:00 04/15/25 08:39 100 MLS/HR Acetaminophen/ Hydrocodone Bitart 1 tab Q4HP PRN PO 04/13/25 19:30 04/15/25 16:46 1 TAB Ondansetron HCl 4 mg Q4HP PRN IV 04/13/25 19:30 Acetaminophen 650 mg Q6HP PRN PO 04/13/25 19:30 Hydromorphone HCl 0.5 mg Q4HPRN PRN IV 04/15/25 16:15 Laboratory Results Laboratory Tests 04/13/25 16:00 04/14/25 07:06 Urinalysis Test 04/13/25 15:30 Urine Color Light-brown (Yellow) Urine Clarity Turbid (Clear) H Urine pH 6.0 (5.0-9.0) Urine Specific [place] 1.018 (1.001-1.035) Urine Protein Negative (Negative) Urine Ketones Negative (Negative) Urine Blood 3+ /uL (Negative) H Urine Nitrite Negative (Negative) Urine Bilirubin Negative (Negative) Urine Urobilinogen Normal mg/dL (Negative) Urine Leukocyte Esterase Negative /uL (Negative) Urine RBC 2617 /hpf (0 - 3) Urine Microscopic WBC 39 /HPF (0-3) H Urine Squamous Epithelial Cells None seen /hpf (<5) Urine Bacteria None seen /hpf (None Seen) Urine Glucose Normal mg/dL (Normal) Assessment/Plan Assessment/Plan Renal calculus Right hydronephrosis Renal colic Hematuria Urology consult>mannitol and continue monitoring IV abx IVF Plan discussed with: Patient My Orders Orders - PATTY ROWELL MD Procedure Category Date Status Time Hydromorphone PHA 04/15/25 In Process Injection (Dilaudid 16:15 Date of Service: Apr 15, 2025 Billing Provider: PATTY ROWELL MD Common Visit Codes: [id number] INP/OBS CARE(HIGH) PATTY ROWELL MD Apr 15, 2025 18:10
[2025-04-15] MEDS: HYDROmorphone HCL 2 MG/ML VL/or syr IV PRN (20:35)
[2025-04-16] VITALS (7 sets, daily range): BP systolic 110–182; BP diastolic 65–89; PULSE 72–84; RESP 16–19; TEMP 97.7–99.5; O2SAT 94–99
[2025-04-16] MEDS: hydrALAZINE HCL 20 MG/ML VL IV PRN (01:24)
--- NOTE | 2025-04-16 20:09 | DVHPN2 ---
Subjective had worsening pain today Reviewed: H&P, Labs Changes from previous H/P or p: No Changes Objective Vitals Vital Signs Date Time Temp Pulse Resp B/P (MAP) Pulse Ox O2 Delivery O2 Flow Rate FiO2 04/16/25 17:00 98.6 74 16 144/87 (106) 99 98.6 04/16/25 08:05 Room Air* 0 21 Intake/Output Intake and Output 04/16/25 07:00 Intake Total 2050 ml Balance 2050 ml Intake Oral 1950 ml IV Total 100 ml # Voids 7 # Bowel Movements 3 General Appearance: Alert, Oriented X3 HEENT: Atraumatic Cardiovascular: Regular rate, Normal S2 Medications Current Medications Medications Dose Ordered Sig/Ammy Route Start Time Stop Time Status Last Admin Dose Admin Ceftriaxone Sodium 50 ml @ 100 mls/hr DAILY@09 IV 04/14/25 09:00 04/16/25 08:37 100 MLS/HR Acetaminophen/ Hydrocodone Bitart 1 tab Q4HP PRN PO 04/13/25 19:30 04/15/25 16:46 1 TAB Ondansetron HCl 4 mg Q4HP PRN IV 04/13/25 19:30 Acetaminophen 650 mg Q6HP PRN PO 04/13/25 19:30 Hydromorphone HCl 0.5 mg Q4HPRN PRN IV 04/15/25 16:15 04/15/25 20:35 0.5 MG Hydralazine HCl 10 mg Q6HP PRN IV 04/16/25 01:15 04/16/25 01:24 10 MG Laboratory Results Laboratory Tests 04/13/25 16:00 04/14/25 07:06 Urinalysis Test 04/13/25 15:30 Urine Color Light-brown (Yellow) Urine Clarity Turbid (Clear) H Urine pH 6.0 (5.0-9.0) Urine Specific [place] 1.018 (1.001-1.035) Urine Protein Negative (Negative) Urine Ketones Negative (Negative) Urine Blood 3+ /uL (Negative) H Urine Nitrite Negative (Negative) Urine Bilirubin Negative (Negative) Urine Urobilinogen Normal mg/dL (Negative) Urine Leukocyte Esterase Negative /uL (Negative) Urine RBC 2617 /hpf (0 - 3) Urine Microscopic WBC 39 /HPF (0-3) H Urine Squamous Epithelial Cells None seen /hpf (<5) Urine Bacteria None seen /hpf (None Seen) Urine Glucose Normal mg/dL (Normal) Assessment/Plan Assessment/Plan Renal calculus Right hydronephrosis Renal colic Hematuria Urology consult>mannitol and continue monitoring US with right hydro and kidney stone still present IV abx IVF Plan discussed with: Patient Date of Service: Apr 16, 2025 Billing Provider: PATTY ROWELL MD Common Visit Codes: [id number] INP/OBS CARE(HIGH) PATTY ROWELL MD Apr 16, 2025 20:09
[2025-04-16 21:25] LABS: Anion Gap 9 (5-15); Calcium 9.7 mg/dL (8.7-10.4); Carbon Dioxide 27 mmol/L (20-31); Chloride 105 mmol/L (98-107); Sodium 141 mmol/L (136-145)
[2025-04-16 21:32] LABS: BUN/Creatinine Ratio 14.6 (10.0-20.0); Blood Urea Nitrogen 19 mg/dL (9-23); Glucose 87 mg/dL (74-106)
[2025-04-16 21:34] LABS: Potassium 3.5 mmol/L (3.5-5.1)
[2025-04-17 01:00] VITALS: BP 140/90; PULSE 70; RESP 18; TEMP 99.1; O2SAT 94
[2025-04-17 05:00] VITALS: BP 118/74; PULSE 65; RESP 20; TEMP 98.7; O2SAT 92
[2025-04-17 09:17] VITALS: BP 129/83; PULSE 69; RESP 20; TEMP 98.6; O2SAT 94
== END 2025-04-17 09:55 | disposition home or self-care (01) | DRG 694 ==
LOC: ER 15:07 → OVERFLOW 19:26 → WEST WING 22:44
PROVIDERS: ADMIT Hospitalist; ATTEND Hospitalist
DX: N13.2 Hydronephrosis with renal and ureteral calculous obstruction (principal); Z79.899 Other long term (current) drug therapy; Z91.041 Radiographic dye allergy status
CPT/HCPCS: 36415; 74176; 76775; 80048; 80053; 81001; 83605; 83690; 84484; 85025; 96361; 96374; G0378